=== PATIENT | male | born 1965 | race Caucasian/White ===

== ENCOUNTER → 2017-08-31 | Outpatient (CLI) | payer BC ==
[2017-08-31 17:50] LABS: BASO % 0.5 % (0.0-1.0); EOS # 0.1 10^3/uL (0.0-0.50); EOS % 1.4 % (0.0-3.0); HEMATOCRIT 40.8 % (42.0-52.0); HEMOGLOBIN 14.6 g/dl (13.5-17.5); IMMATURE GRANULOCYTE % 1.1 % (0-3.0); LYMPH % 23.3 % (24.0-44.0); MEAN CORPUSCULAR HEMOGLOBIN 32.1 pg (27.0-33.0); MEAN CORPUSCULAR HGB CONC 35.8 g/dl (32.0-36.5); MEAN CORPUSCULAR VOLUME 89.7 fl (80.0-96.0); MONO # 0.6 10^3/uL (0.0-0.8); MONO % 7.4 % (0.0-5.0); NEUTROPHILS # 5.6 10^3/uL (1.8-7.7); NEUTROPHILS % 66.3 % (36.0-66.0); PLATELET COUNT, AUTOMATED 314 10^3/uL (150-450); RED BLOOD COUNT 4.55 10^6/uL (4.30-6.10); RED CELL DISTRIBUTION WIDTH 12.9 % (11.5-14.5); WHITE BLOOD COUNT 8.5 10^3/uL (4.0-10.0)
[2017-08-31 18:07] LABS: ALBUMIN 3.7 GM/DL (3.2-5.2); ALBUMIN/GLOBULIN RATIO 1.42 (1.00-1.93); ALKALINE PHOSPHATASE 98 U/L (45-117); ALT/SGPT 44 U/L (12-78); ANION GAP 2 MEQ/L (8-16); AST/SGOT 19 U/L (7-37); BILIRUBIN,TOTAL 0.5 MG/DL (0.2-1.0); BLOOD UREA NITROGEN 20 MG/DL (7-18); CALCIUM LEVEL 8.3 MG/DL (8.5-10.1); CARBON DIOXIDE LEVEL 31 MEQ/L (21-32); CHLORIDE LEVEL 110 MEQ/L (98-107); CREATININE FOR GFR 1.12 MG/DL (0.70-1.30); GLOMERULAR FILTRATION RATE > 60.0 (>56); GLUCOSE, FASTING 114 MG/DL (70-100); POTASSIUM SERUM 4.4 MEQ/L (3.5-5.1); SODIUM LEVEL 143 MEQ/L (136-145); TOTAL PROTEIN 6.3 GM/DL (6.4-8.2)
== END ==
LOC: M WUC 11:58
DX: M10.9 Gout, unspecified (principal)
CPT/HCPCS: 84550

== ENCOUNTER → 2019-03-18 | Outpatient (CLI) | payer BC ==
[2019-03-18 11:48] LABS: ALT/SGPT 113 U/L (12-78)
[2019-03-18 11:49] LABS: ALBUMIN 4.3 GM/DL (3.2-5.2); BILIRUBIN,DIRECT 0.2 MG/DL (0.0-0.2); BILIRUBIN,TOTAL 0.7 MG/DL (0.2-1.0); TOTAL PROTEIN 7.1 GM/DL (6.4-8.2)
[2019-03-19 10:19] LABS: HEPATITIS B SURFACE ANTIGEN NEGATIVE (NEGATIVE)
[2019-03-19 10:45] LABS: HEPATITIS C VIRUS ABY INDEX < 0.0 INDEX (<0.8)
[2019-03-19 10:46] LABS: HEPATITIS B CORE ANTIBODY IGM NEGATIVE (NEGATIVE)
[2019-03-19 10:48] LABS: HEPATITIS A ANTIBODY IGM NEGATIVE (NEGATIVE)
== END ==
LOC: M LAB 10:15
PROVIDERS: ATTEND Internal Medicine Gastroenterology
DX: K75.81 Nonalcoholic steatohepatitis (NASH) (principal)

== ENCOUNTER → 2019-06-30 | Outpatient (CLI) | payer BC ==
[~2019-06-30] MED LIST: ZYLO300T6 PO
--- NOTE | 2019-06-30 15:45 | REP ---
MAXILLOFACIAL CT STUDY WITHOUT CONTRAST: HISTORY: Chronic pansinusitis. Comparison sinus radiographs are from July 31, 2015. Comparison maxillofacial CT study March 24, 2011. CT FINDINGS: The left frontal sinus is completely opacified. Right frontal sinus is clear. There is mild mucosal thickening in several of the left ethmoid air cells as well. The right ethmoid sinuses are clear. Sphenoid aeration is normal. Mastoid aeration is normal and symmetric. There are several small mucous retention cysts in the maxillary sinuses. Maxillary sinuses are otherwise clear. Ostiomeatal complexes are widely patent. The bony nasal septum deviates to the right with a fairly prominent septal beak. Nasal turbinate soft tissues are unremarkable. No nasal polyp is appreciated. Bony orbital margins and paranasal sinus margins are intact. No orbital mass lesion is seen. Visualized intracranial structures are unremarkable. IMPRESSION: Paranasal sinus disease involving the left frontal sinus, left ethmoid sinuses, and to some degree of bilateral maxillary sinuses. There is rightward deviation of the nasal septum with a septal beak. Electronically Signed by Vinod Gutierrez MD 06/30/2019 04:40 P
== END ==
LOC: M RAD 15:13
PROVIDERS: ATTEND Otolaryngology
DX: J32.4 Chronic pansinusitis (principal); J34.2 Deviated nasal septum

== ENCOUNTER → 2019-07-05 | Outpatient (CLI) | payer BC | LOC: M LABSMTC 08:49 | PROVIDERS: ATTEND Anesthesiology | DX: Z01.818 Encounter for other preprocedural examination (principal); Z11.59 Encounter for screening for other viral diseases ==

== ENCOUNTER 2019-07-08 12:26 | Day surgery (SDC) | payer BC ==
[~2019-07-08] VITALS: Ht 180.3 cm; Wt 101.2 kg
[~2019-07-08 12:26] MED LIST changes: +LIDOCAINE 2% 100MG/5ML SDV (FOR ANES.) As Ordered ONE; +NS 1,000 ML IV ONE; +propofoL 200 MG/20 ML VIAL As Ordered ONE
--- NOTE | 2019-07-08 13:36 | ROOR ---
Patient Name: Quincy De La O Procedure Date: 07/08/2019 1:09 PM Date of : 1965 Age: 53 Room: [facility] Gender: Male Note Status: Finalized Procedure: Colonoscopy Indications: Screening for colorectal malignant neoplasm Providers: Joseph MISHRA MD Referring MD: CONOR ESCALERA Requesting Provider: Medicines: Monitored Anesthesia Care Complications: No immediate complications. Procedure: Pre-Anesthesia Assessment: - The heart rate, respiratory rate, oxygen saturations, blood pressure, adequacy of pulmonary ventilation, and response to care were monitored throughout the procedure. The Colonoscope was introduced through the anus and advanced to the terminal ileum, with identification of the appendiceal orifice and IC valve. The colonoscopy was performed without difficulty. The patient tolerated the procedure well. The quality of the bowel preparation was good. Findings: The perianal and digital rectal examinations were normal. A 5 mm polyp was found in the recto-sigmoid colon. The polyp was semi-pedunculated. The polyp was removed with a cold snare. Resection and retrieval were complete. To prevent bleeding after the polypectomy, one hemostatic clip was successfully placed. There was no bleeding at the end of the procedure. A diminutive polyp was found in the ascending colon. The polyp was sessile. The polyp was removed with a cold snare. Resection and retrieval were complete. Small Internal Hemorrhoids. The exam was otherwise without abnormality on direct and retroflexion views. Impression: - One 5 mm polyp at the recto-sigmoid colon, removed with a cold snare. Resected and retrieved. Clip was placed. - One 3 mm polyp in the ascending colon, removed with a cold snare. Resected and retrieved. - Small Internal Hemorrhoids. - The examination was otherwise normal on direct and retroflexion views. Recommendation: - Repeat colonoscopy in 5 years for surveillance. Joseph Mishra MD Joseph MISHRA MD 07/08/2019 1:35:47 PM Electronically signed by Joseph MISHRA MD Number of Addenda: 0 Note Initiated On: 07/08/2019 1:09 PM Estimated Blood Loss: Estimated blood loss: none.
[2019-07-08 14:13] VITALS: BP 121/76
== END 2019-07-08 14:35 | disposition home or self-care (01) ==
LOC: M OPP 12:26
PROVIDERS: ATTEND Internal Medicine Gastroenterology
DX: Z12.11 Encounter for screening for malignant neoplasm of colon (principal); Z80.0 Family history of malignant neoplasm of digestive organs; K62.1 Rectal polyp; D12.2 Benign neoplasm of ascending colon; K64.8 Other hemorrhoids; Z79.899 Other long term (current) drug therapy; Z87.891 Personal history of nicotine dependence

== ENCOUNTER 2020-07-08 10:16 | Emergency (ER) | payer BC ==
[~2020-07-08] VITALS: Ht 180.3 cm; Wt 102.3 kg
[~2020-07-08 10:16] MED LIST changes: -LIDOCAINE 2% 100MG/5ML SDV (FOR ANES.) As Ordered ONE; -NS 1,000 ML IV ONE; -propofoL 200 MG/20 ML VIAL As Ordered ONE
[2020-07-08] MEDS ORDERED: BACL10TA2 PO (10:21)
[2020-07-08] MEDS ORDERED: KETOROLAC 60MG 2ML VIAL IM ONE (11:35)
--- NOTE | 2020-07-08 12:23 | REPVR ---
PROCEDURE INFORMATION: Exam: CT Cervical Spine Without Contrast Exam date and time: 07/08/2020 11:33 AM Age: 54 years old Clinical indication: Neck pain; Additional info: Severe pain, HX of chronic pain TECHNIQUE: Imaging protocol: Computed tomography images of the cervical spine without contrast. Radiation optimization: All CT scans at this facility use at least one of these dose optimization techniques: automated exposure control; mA and/or kV adjustment per patient size (includes targeted exams where dose is matched to clinical indication); or iterative reconstruction. COMPARISON: CR C-SPINE W,AP,FLEX,EXT VIEWS 08/15/2013 2:29 PM FINDINGS: Bones/joints: No acute fracture. There is levoconvexity of the cervical spine with right head tilted inferiorly and therefore this could be positional and correlate clinically. No sagittal subluxation. Discs/Spinal canal/Neural foramina: There are degenerative changes predominantly C5-C6 with disc height loss and mild disc osteophyte complex. No significant degrees of neural foraminal stenosis or spinal stenosis. Lungs: Lung apices are unremarkable for acute finding. Paranasal sinuses: There are retention cysts or polyps and/or mucosal thickening in inferior bilateral maxillary sinuses. Soft tissues: Unremarkable. IMPRESSION: No acute fracture. Mild degenerative changes. Electronically signed by: Reema Perry On 07/08/2020 12:23:06 PM
--- NOTE | 2020-07-08 12:29 | REPVR ---
PROCEDURE INFORMATION: Exam: CT Lumbar Spine Without Contrast Exam date and time: 07/08/2020 11:33 AM Age: 54 years old Clinical indication: Other: Back pain; Additional info: Severe pain, HX of chronic pain TECHNIQUE: Imaging protocol: Computed tomography images of the lumbar spine without contrast. Radiation optimization: All CT scans at this facility use at least one of these dose optimization techniques: automated exposure control; mA and/or kV adjustment per patient size (includes targeted exams where dose is matched to clinical indication); or iterative reconstruction. COMPARISON: MRI-Spine, L.S. without con 08/11/2013 11:13 AM FINDINGS: Vertebrae: No acute fracture. Normal alignment. Discs/Spinal canal/Neural foramina: L1-L2 and L2-L3 show no significant disc bulging or protrusion. No evidence of significant spinal stenosis or neural foraminal narrowing. L3-L4 appears to show mild disc bulging likely with mild spinal canal narrowing and mild right and no significant left neural foraminal narrowing. L4-L5 shows disc bulge may be slightly greater centrally. A more well-defined left central and subarticular recess protrusion seen on prior MRI which is not well visualized on the CT. This could be better evaluated with MRI. There is likely moderate range spinal stenosis. Neural foramen appear adequate. L5-S1 shows broad-based central protrusion with marginal osteophyte and this appears asymmetric to the right and likely contacts the right S1 nerve root. A more focal right subarticular recess protrusion seen on prior MRI and this could be further evaluated with repeat MR imaging. Soft tissues: Unremarkable. IMPRESSION: Degenerative changes greatest at L4-L5 and L5-S1 which could be better evaluated with repeat MRI and compared to prior MRI. Electronically signed by: Reema Perry On 07/08/2020 12:29:23 PM
[2020-07-08] MEDS ORDERED: METH-1165 PO (12:36)
[2020-07-08] MEDS ORDERED: LIDO5DIS41 TD (12:36)
[2020-07-08 12:40] VITALS: BP 121/73
--- NOTE | 2020-07-09 07:18 | ED PDOC ---
Post-Departure Follow-Up radiology report faxed to heather Reynolds Sarah MD July 09, 2020 07:18
== END 2020-07-08 12:44 | disposition home or self-care (01) ==
LOC: M ED 10:16
DX: M50.322 Other cervical disc degeneration at C5-C6 level (principal); M51.37 Other intervertebral disc degeneration, lumbosacral region; Z79.899 Other long term (current) drug therapy
CPT/HCPCS: 72125; 72131; 96372; 99283; J1885

== ENCOUNTER → 2020-09-23 | Outpatient (CLI) | payer SELFPAY ==
[~2020-09-23] MED LIST changes: +BACL10TA2 PO; +LIDO5DIS41 TD; +METH-1165 PO
[2020-09-23 18:14] LABS: BASO # 0.1 10^3/uL (0.0-0.2); BASO % 0.8 % (0.0-1.0); EOS # 0.1 10^3/uL (0.0-0.5); EOS % 1.8 % (0.0-3.0); HEMOGLOBIN 15.8 g/dl (13.5-17.5); LYMPH % 28.1 % (24.0-44.0); MEAN CORPUSCULAR HEMOGLOBIN 31.8 pg (27.0-33.0); MEAN CORPUSCULAR HGB CONC 35.1 g/dl (32.0-36.5); MEAN CORPUSCULAR VOLUME 90.5 fl (80.0-96.0); MONO # 0.5 10^3/uL (0.0-0.8); MONO % 6.6 % (2.0-8.0); NEUTROPHILS # 4.4 10^3/uL (1.5-8.5); NEUTROPHILS % 62.3 % (36.0-66.0); PLATELET COUNT, AUTOMATED 241 10^3/uL (150-450); RED BLOOD COUNT 4.97 10^6/uL (4.30-6.10); WHITE BLOOD COUNT 7.1 10^3/uL (4.0-10.0)
[2020-09-23 18:43] LABS: ALBUMIN 4.2 GM/DL (3.2-5.2); ALT/SGPT 385 U/L (12-78); BILIRUBIN,TOTAL 5.8 MG/DL (0.2-1.0); BLOOD UREA NITROGEN 7 MG/DL (7-18); CALCIUM LEVEL 9.3 MG/DL (8.5-10.1); CARBON DIOXIDE LEVEL 29 MEQ/L (21-32); CHLORIDE LEVEL 101 MEQ/L (98-107); CREATININE FOR GFR 1.07 MG/DL (0.70-1.30); GLOMERULAR FILTRATION RATE > 60.0 (>56); GLUCOSE, FASTING 112 MG/DL (70-100); LIPASE 73 U/L (73-393); POTASSIUM SERUM 4.2 MEQ/L (3.5-5.1); SODIUM LEVEL 136 MEQ/L (136-145); TOTAL PROTEIN 7.1 GM/DL (6.4-8.2)
== END ==
LOC: M LAB 17:34
PROVIDERS: ATTEND Physician Assistant
DX: R10.10 Upper abdominal pain, unspecified (principal)

== ENCOUNTER → 2021-02-17 | Outpatient (CLI) | payer SELFPAY ==
[~2021-02-17] MED LIST changes: +ICOS1CAP PO; +OMEG1CAP85 PO; +PANT40TA29 PO; +VASC1CAP2 PO
== END ==
LOC: M LABSMTC 09:01
PROVIDERS: ATTEND Anesthesiology
DX: Z01.812 Encounter for preprocedural laboratory examination (principal); Z20.822 Contact with and (suspected) exposure to COVID-19

== ENCOUNTER 2021-02-22 07:21 | Day surgery (SDC) | payer OTHER ==
[~2021-02-22] VITALS: Ht 180.3 cm; Wt 91.6 kg
[~2021-02-22 07:21] MED LIST changes: +LR 1,000 ML IV ONE; +ceFAZolin SOD 2 GM in IV 1 EA IV ONE
[2021-02-22] MEDS ORDERED: ROCURONIUM BROMIDE 50 MG/5 ML VIAL As Ordered ONE (07:57)
[2021-02-22] MEDS ORDERED: KETOROLAC 60MG 2ML VIAL As Ordered ONE (07:57)
[2021-02-22] MEDS ORDERED: METOCLOPRAMIDE INJ 10MG/2ML VIAL (J2765 PER 1) As Ordered ONE (07:57)
[2021-02-22] MEDS ORDERED: SUGAMMADEX SODIUM 500 MG/5 ML VIAL (BRIDION) As Ordered ONE (07:57)
[2021-02-22] MEDS ORDERED: dexameTHASONE 4 MG/ML 1ML VIAL (J1100 PER 1MG) As Ordered ONE (07:57)
[2021-02-22] MEDS ORDERED: propofoL 200 MG/20 ML VIAL As Ordered ONE (07:57)
[2021-02-22] MEDS ORDERED: ONDANSETRON 4MG/2ML VIAL As Ordered ONE (07:57)
[2021-02-22] MEDS ORDERED: LIDOCAINE 2% 100MG/5ML SDV (FOR ANES.) As Ordered ONE (07:57)
[2021-02-22] MEDS ORDERED: fentaNYL 250 MCG/5 ML INJECTION (J3010) As Ordered ONE (08:05)
[2021-02-22] MEDS ORDERED: MIDAZOLAM INJ 2MG/2ML VIAL (J2250 PER 1MG) As Ordered ONE (08:06)
[2021-02-22] MEDS ORDERED: BUPIVACAINE HCL 0.25% 10ML VIAL As Ordered ONE (10:30)
[2021-02-22] MEDS ORDERED: BUPIVACAINE/EPIN 0.25% 30 ML VIAL As Ordered ONE (10:30)
[2021-02-22] MEDS ORDERED: BUPIVACAINE LIPOSOME/PF 1.3% 20ML VIAL (13.3MG/ML)(EXPAREL)(C9290 PER1MG) As Ordered ONE (10:30)
[2021-02-22] MEDS ORDERED: ACETAMINOPHEN 1000MG 100ML IV BTL (OFIRMEV) (J0131 PER 10MG) As Ordered ONE (10:49)
[2021-02-22] MEDS ORDERED: ePHEDrine SULFATE 25 MG/5 ML(5MG/ML) SYRINGE As Ordered ONE (11:06)
[2021-02-22] MEDS ORDERED: PHENYLephrine 500MCG 5ML (100MCG/ML) SYRINGE As Ordered ONE (11:06)
[2021-02-22] MEDS ORDERED: NORCO, ANEXSIA 5/325MG TABLET (HYDROcodone/ACETAMINOPHEN) PO PRN (12:10)
[2021-02-22] MEDS ORDERED: LR 1,000 ML IV SCH (12:10)
[2021-02-22] MEDS ORDERED: oxyCODONE 5MG TAB PO PRN (12:10)
[2021-02-22] MEDS ORDERED: ONDANSETRON 4MG/2ML VIAL IV PRN (12:10)
[2021-02-22] MEDS ORDERED: NS 1,000 ML IV SCH (12:10)
[2021-02-22] MEDS ORDERED: fentaNYL 100 MCG/2 ML INJECTION (J3010) IV PRN (12:10)
[2021-02-22 13:35] VITALS: BP 122/77
== END 2021-02-22 13:35 | disposition home or self-care (01) ==
LOC: M SDC 07:21
PROVIDERS: ATTEND Surgery
DX: K42.9 Umbilical hernia without obstruction or gangrene (principal); E78.5 Hyperlipidemia, unspecified; K21.9 Gastro-esophageal reflux disease without esophagitis; K76.9 Liver disease, unspecified; Z79.899 Other long term (current) drug therapy
CPT/HCPCS: 49585; 88302; C1781; C9290; J0131; J0690; J1100; J1885; J2250; J2370; J2405; J2765; J3010

== ENCOUNTER → 2022-03-27 | Outpatient (REF) | payer BC, OTHER ==
[~2022-03-27] MED LIST changes: -LR 1,000 ML IV ONE; -ceFAZolin SOD 2 GM in IV 1 EA IV ONE
== END ==
LOC: M LAB REF 16:29
PROVIDERS: ATTEND Surgery
DX: D17.23 Benign lipomatous neoplasm of skin and subcutaneous tissue of right leg (principal)

== ENCOUNTER → 2022-07-29 | Outpatient (CLI) | payer BC ==
[2022-07-29 10:13] LABS: BASO # 0.1 10^3/uL (0.0-0.2); BASO % 0.8 % (0.0-1.0); EOS # 0.1 10^3/uL (0.0-0.5); EOS % 2.1 % (0.0-3.0); HEMATOCRIT 43.5 % (42.0-52.0); HEMOGLOBIN 15.5 g/dl (13.5-17.5); LYMPH % 31.8 % (24.0-44.0); MEAN CORPUSCULAR HGB CONC 35.6 g/dl (32.0-36.5); MEAN CORPUSCULAR VOLUME 89.7 fl (80.0-96.0); MONO # 0.3 10^3/uL (0.0-0.8); MONO % 5.5 % (2.0-8.0); NEUTROPHILS # 3.7 10^3/uL (1.5-8.5); NEUTROPHILS % 59.5 % (36.0-66.0); PLATELET COUNT, AUTOMATED 208 10^3/uL (150-450); RED BLOOD COUNT 4.85 10^6/uL (4.30-6.10); WHITE BLOOD COUNT 6.2 10^3/uL (4.0-10.0)
[2022-07-29 10:38] LABS: C REACTIVE PROTEIN QUANTITATIV < 0.40 MG/DL (<1.0)
[2022-07-29 10:39] LABS: RHEUMATOID FACTOR QUANT < 3.5 IU/ML (<14)
[2022-07-29 10:45] LABS: ERYTHROCYTE SEDIMENTATION RATE < 1 mm/hr (0-20)
== END ==
LOC: M LAB 09:48
PROVIDERS: ATTEND Physician Assistant
DX: M47.896 Other spondylosis, lumbar region (principal); M51.16 Intervertebral disc disorders with radiculopathy, lumbar region

== ENCOUNTER 2022-09-03 07:17 | Emergency (ER) | payer BC ==
[~2022-09-03] VITALS: Ht 180.3 cm; Wt 96.0 kg
[2022-09-03 08:39] LABS: BASO # 0.1 10^3/uL (0.0-0.2); BASO % 0.5 % (0.0-1.0); EOS # 0.1 10^3/uL (0.0-0.5); EOS % 0.6 % (0.0-3.0); HEMATOCRIT 38.5 % (42.0-52.0); HEMOGLOBIN 13.9 g/dl (13.5-17.5); LYMPH # 1.8 10^3/uL (1.5-5.0); LYMPH % 18.1 % (24.0-44.0); MEAN CORPUSCULAR HEMOGLOBIN 32.1 pg (27.0-33.0); MEAN CORPUSCULAR HGB CONC 36.1 g/dl (32.0-36.5); MEAN CORPUSCULAR VOLUME 88.9 fl (80.0-96.0); MONO # 0.6 10^3/uL (0.0-0.8); MONO % 5.9 % (2.0-8.0); NEUTROPHILS # 7.5 10^3/uL (1.5-8.5); NEUTROPHILS % 74.1 % (36.0-66.0); PLATELET COUNT, AUTOMATED 231 10^3/uL (150-450); RED BLOOD COUNT 4.33 10^6/uL (4.30-6.10); WHITE BLOOD COUNT 10.1 10^3/uL (4.0-10.0)
[2022-09-03 09:09] LABS: ALBUMIN 3.5 G/DL (3.2-5.2); ALKALINE PHOSPHATASE 82 U/L (46-116); ALT/SGPT 40 U/L (7.0-40); AST/SGOT 31 U/L (<34); BILIRUBIN,DIRECT 0.2 MG/DL (<0.4); BLOOD UREA NITROGEN 14 MG/DL (9-23); CALCIUM LEVEL 8.1 MG/DL (8.5-10.1); CARBON DIOXIDE LEVEL 24 MMOL/L (20-31); CHLORIDE LEVEL 108 MMOL/L (98-107); CREATININE FOR GFR 0.89 MG/DL (0.70-1.30); GLOMERULAR FILTRATION RATE > 60.0 (>56); GLUCOSE, FASTING 105 MG/DL (60-100); POTASSIUM SERUM 4.4 MMOL/L (3.5-5.1); SODIUM LEVEL 139 MMOL/L (136-145); TOTAL PROTEIN 6.1 G/DL (5.7-8.2)
[2022-09-03 09:11] LABS: URIC ACID 8.2 MG/DL (3.7-9.2)
[2022-09-03 11:22] LABS: INR 0.86; PARTIAL THROMBOPLASTIN TIME 28.1 SECONDS (24.8-34.2); PROTHROMBIN TIME 11.9 SECONDS (12.5-14.5)
[2022-09-03] MEDS ORDERED: COLCHICINE 0.6 MG TABLET PO ONE ×3 (11:25→12:30)
[2022-09-03] MEDS ORDERED: KETOROLAC 30 MG/ML 1ML VIAL IV ONE (11:25)
[2022-09-03] MEDS ORDERED: TRAM50TA2 PO (11:38)
[2022-09-03] MEDS ORDERED: NAPR-837 PO (11:38)
[2022-09-03 11:52] VITALS: BP 142/91; TEMP 98.9; O2SAT 100
== END 2022-09-03 12:01 | disposition home or self-care (01) ==
LOC: M ED 07:17
DX: M10.031 Idiopathic gout, right wrist (principal); K21.9 Gastro-esophageal reflux disease without esophagitis; K76.9 Liver disease, unspecified; Z79.899 Other long term (current) drug therapy
CPT/HCPCS: 73110; 80048; 80076; 84550; 85025; 85610; 85730; 96374; 99284; J1885

== ENCOUNTER 2023-11-22 11:48 | Emergency (ER) | payer BC ==
[~2023-11-22] VITALS: Ht 180.3 cm; Wt 93.1 kg
[~2023-11-22 11:48] MED LIST changes: +NAPR-837 PO; +OMEG-28 PO; -OMEG1CAP85 PO; +TRAM50TA2 PO
[2023-11-22 13:45] LABS: BASO # 0.1 10^3/uL (0.0-0.2); BASO % 0.4 % (0.0-1.0); EOS # 0.1 10^3/uL (0.0-0.5); EOS % 0.5 % (0.0-3.0); HEMATOCRIT 43.9 % (42.0-52.0); HEMOGLOBIN 15.9 g/dl (13.5-17.5); LYMPH # 2.8 10^3/uL (1.5-5.0); LYMPH % 15.6 % (24.0-44.0); MEAN CORPUSCULAR HEMOGLOBIN 32.4 pg (27.0-33.0); MEAN CORPUSCULAR HGB CONC 36.2 g/dl (32.0-36.5); MEAN CORPUSCULAR VOLUME 89.4 fl (80.0-96.0); MONO # 1.1 10^3/uL (0.0-0.8); MONO % 6.3 % (2.0-8.0); NEUTROPHILS # 13.7 10^3/uL (1.5-8.5); NEUTROPHILS % 76.8 % (36.0-66.0); PLATELET COUNT, AUTOMATED 312 10^3/uL (150-450); RED BLOOD COUNT 4.91 10^6/uL (4.30-6.10); WHITE BLOOD COUNT 17.8 10^3/uL (4.0-10.0)
[2023-11-22 13:48] LABS: ALBUMIN 4.3 G/DL (3.2-5.2); ALKALINE PHOSPHATASE 116 U/L (46-116); ALT/SGPT 36 U/L (7.0-40); AST/SGOT 24 U/L (<34); BILIRUBIN,DIRECT 0.3 MG/DL (<0.4); BILIRUBIN,TOTAL 1.2 MG/DL (0.3-1.2); BLOOD UREA NITROGEN 15 MG/DL (9-23); CARBON DIOXIDE LEVEL 27 MMOL/L (20-31); CHLORIDE LEVEL 106 MMOL/L (98-107); CREATININE FOR GFR 1.19 MG/DL (0.70-1.30); GLOMERULAR FILTRATION RATE > 60.0 (>56); GLUCOSE, FASTING 127 MG/DL (60-100); POTASSIUM SERUM 4.3 MMOL/L (3.5-5.1); SODIUM LEVEL 139 MMOL/L (136-145); TOTAL PROTEIN 7.1 G/DL (5.7-8.2)
[2023-11-22 13:55] LABS: PROCALCITONIN 0.04 ng/ml
[2023-11-22 13:59] LABS: URIC ACID 9.3 MG/DL (3.7-9.2)
[2023-11-22 14:11] LABS: ERYTHROCYTE SEDIMENTATION RATE 4 mm/hr (0-20)
[2023-11-22] MEDS ORDERED: MEDR4PAK PO (17:24)
[2023-11-22] MEDS: methylPREDNISolone 125MG 2ML VIAL IV ONE (17:36)
[2023-11-22] MEDS: KETOROLAC 30 MG/ML 1ML VIAL IV ONE (17:36)
[2023-11-22 17:45] VITALS: BP 129/77; TEMP 100; O2SAT 94
== END 2023-11-22 18:12 | disposition home or self-care (01) ==
LOC: M ED 11:48
DX: M11.262 Other chondrocalcinosis, left knee (principal); M25.462 Effusion, left knee; M25.762 Osteophyte, left knee; E78.5 Hyperlipidemia, unspecified; M10.9 Gout, unspecified; Z79.1 Long term (current) use of non-steroidal anti-inflammatories (NSAID); Z79.899 Other long term (current) drug therapy
CPT/HCPCS: 73564; 73700; 80048; 80076; 83605; 84145; 84550; 85025; 85652; 86140; 87040; 93005; 93971; 96374; 99285; J1885; J2919